=== PATIENT | male | born 1970 | race Caucasian/White ===

== ENCOUNTER 2017-08-16 14:44 | Emergency (ER) | payer MEDICARE, OTHER ==
[~2017-08-16] VITALS: Ht 182.9 cm; Wt 99.8 kg
[2017-08-16 15:02] VITALS: BP 122/80
== END 2017-08-16 15:54 | disposition home or self-care (01) ==
LOC: ER 14:56
DX: T70.0XXA Otitic barotrauma, initial encounter (principal); F25.9 Schizoaffective disorder, unspecified; Z91.018 Allergy to other foods
CPT/HCPCS: A4606; Z7610